=== PATIENT | male | born 1945 | race Caucasian/White ===

== ENCOUNTER 2017-11-14 18:14 | Inpatient (IN) | payer MEDICARE ==
[2017-11-14] MEDS ORDERED: ACETAMINOPHEN 325 MG TABLET PO ONE (18:27)
--- NOTE | 2017-11-14 18:53 | ER Document Report ---
ED Medical Screen (RME) - General Chief Complaint: Incision Problem Stated Complaint: PAIN/REDNESS AT SURGICAL SITE Time Seen by Provider: 11/14/17 18:47 Notes: -year-old male patient with past history colon cancer and in the ostomy. He had a ventral hernia with mesh in the past. The mesh got infected and it was removed about 09/28/2017. He now has an area at the upper part of the scar which is red, bulging and fluctuant which began on 11/11/2017. Also began having a fever on that day. I have greeted and performed a rapid initial assessment of this patient. A comprehensive ED assessment and evaluation of the patient, analysis of test results and completion of the medical decision making process will be conducted by additional ED providers. TRAVEL OUTSIDE OF THE [place] IN LAST 30 DAYS: No - Related Data Allergies/Adverse Reactions: No Known Allergies Allergy (Verified 11/14/17 18:17) Past Medical History - Social History Chew tobacco use (# tins/day): No Frequency of alcohol use: None Drug Abuse: None - Past Medical History Cardiac Medical History: Reports: Hx Heart Murmur - newly Dx'ed, no MVP per echo DR. Hopkins 02/21/12 Denies: Hx Atrial Fibrillation, Hx Congestive Heart Failure, Hx Coronary Artery Disease, Hx Heart Attack, Hx Hypercholesterolemia, Hx Hypertension, Hx Peripheral Vascular Disease Pulmonary Medical History: Denies: Hx Asthma, Hx Tuberculosis Neurological Medical History: Denies: Hx Cerebrovascular Accident, Hx Seizures Renal/ Medical History: Denies: Hx Peritoneal Dialysis Malignancy Medical History: Reports Hx Colorectal Cancer, Denies Hx Leukemia GI Medical History: Denies: Hx Crohn's Disease, Hx Gastroesophageal Reflux Disease, Hx Hepatitis, Hx Hiatal Hernia, Hx Irritable Bowel, Hx Liver Failure, Hx Pancreatitis, Hx Ulcer Musculoskeltal Medical History: Reports Hx Musculoskeletal Deformity, Reports Hx Musculoskeletal Trauma Traumatic Medical History: Reports: Hx Fractures - left femur right wrist Infectious Medical History: Denies: Hx Hepatitis, Hx HIV Past Surgical History: Reports: Hx Abdominal Surgery - hernia repair and mesh removal, Hx Appendectomy, Hx Bowel Surgery - colostomy, Hx Orthopedic Surgery - rt femur left wrist. Denies: Hx Cholecystectomy, Hx Colostomy, Hx Coronary Artery Bypass Graft, Hx Gastric Bypass Surgery, Hx Herniorrhaphy, Hx Open Heart Surgery, Hx Pacemaker, Hx Tonsillectomy - Immunizations Immunizations up to date: Yes Hx Diphtheria, Pertussis, Tetanus Vaccination: Yes Physical Exam - Vital signs Vitals: Temp Pulse Resp BP Pulse Ox 102.1 F H 140 H 20 123/76 94 11/14/17 18:22 11/14/17 18:22 11/14/17 18:22 11/14/17 18:22 11/14/17 18:22 Course - Vital Signs Vital signs: Temp Pulse Resp BP Pulse Ox 102.1 F H 140 H 20 123/76 94 11/14/17 18:22 11/14/17 18:22 11/14/17 18:22 11/14/17 18:22 11/14/17 18:22
[2017-11-14 19:28] LABS: ABSOLUTE BASOPHILS # (AUTO) 0.1 10^3/uL (0.0-0.2); ABSOLUTE LYMPHOCYTES (AUTO) 0.7 10^3/uL (0.5-4.7); ABSOLUTE MONOCYTES (AUTO) 1.2 10^3/uL (0.1-1.4); ABSOLUTE NEUT (AUTO) 8.4 10^3/uL (1.7-8.2); BASOPHILS % (AUTO) 0.5 % (0-2); EOSINOPHILS % (AUTO) 0.3 % (0-6); HEMATOCRIT 36.2 % (37.9-51.0); HEMOGLOBIN 12.1 g/dL (13.5-17.0); LYMPHOCYTES % (AUTO) 7.2 % (13-45); MEAN CORPUSCULAR HEMOGLOBIN 27.9 pg (27.0-33.4); MEAN CORPUSCULAR HGB CONC 33.4 g/dL (32.0-36.0); MEAN CORPUSCULAR VOLUME 83 fl (80-97); MONOCYTES % (AUTO) 11.4 % (3-13); PLATELET COUNT 324 10^3/uL (150-450); RED BLOOD COUNT 4.34 10^6/uL (4.35-5.55); RED CELL DISTRIBUTION WIDTH 15.2 % (11.5-14.0); SEGMENTED NEUTROPHILS % (AUTO) 80.6 % (42-78); TOTAL CELLS COUNTED % (AUTO) 100 %; WHITE BLOOD COUNT 10.4 10^3/uL (4.0-10.5)
[2017-11-14] MEDS ORDERED: NORMAL SALINE 1000 ML 1,000 ML IV ONE (19:44)
[2017-11-14] MEDS ORDERED: AMPICILLIN SOD/SULBACTAM 3 GM VIAL IV ONE (19:45)
[2017-11-14 19:47] LABS: ALANINE AMINOTRANSFERASE 21 U/L (21-72); ALBUMIN 3.9 g/dL (3.5-5.0); ALKALINE PHOSPHATASE 83 U/L (38-126); ANION GAP 13 (5-19); ASPARTATE AMINO TRANSFERASE 20 U/L (17-59); BILIRUBIN,DIRECT 0.3 mg/dL (0.0-0.4); BILIRUBIN,TOTAL 0.4 mg/dL (0.2-1.3); BLOOD UREA NITROGEN 22 mg/dL (7-20); CALCIUM 9.5 mg/dL (8.4-10.2); CARBON DIOXIDE 24 mmol/L (22-30); CHLORIDE 100 mmol/L (98-107); GLUCOSE 109 mg/dL (75-110); POTASSIUM 4.5 mmol/L (3.6-5.0); SODIUM 136.8 mmol/L (137-145); TOTAL PROTEIN 7.2 g/dL (6.3-8.2)
[2017-11-14] MEDS ORDERED: ONDANSETRON HCL INJ/PF 4 MG/2 ML SDV IV ONE (21:35)
--- NOTE | 2017-11-14 21:54 | RADIOLOGY REPORT (SQ) ---
EXAM DESCRIPTION: CT ABD/PELVIS WITH IV ONLY COMPLETED DATE/TIME: 11/14/2017 9:30 pm REASON FOR STUDY: post surgical abscess/abd wall COMPARISON: 2015 CT. TECHNIQUE: CT scan of the abdomen and pelvis performed using helical scanning technique with dynamic intravenous contrast injection. No oral contrast. Images reviewed with lung, soft tissue, and bone windows. Reconstructed coronal and sagittal MPR images reviewed. Delayed images for evaluation of the urinary system also acquired. All images stored on PACS. All CT scanners at this facility use dose modulation, iterative reconstruction, and/or weight based d osing when appropriate to reduce radiation dose to as low as reasonably achievable (ALARA). [facility]: Dose Right [facility]: CareDose [facility]: Dose Right [facility]: Teradose 4D [facility]: StyleSeat CONTRAST TYPE AND DOSE: contrast/concentration: Isovue 370.00 mg/ml; Total Contrast Delivered: 79.0 ml; Total Saline Delivered: 68.1 ml RENAL FUNCTION: Creatinine 1.03 RADIATION DOSE: CT Rad equipment meets quality standard of care and radiation dose reduction techniq ues were employed. CTDIvol: 10.3 - 10.6 mGy. DLP: 1208 mGy-cm.. LIMITATIONS: None. FINDINGS: ABDOMINAL WALL: Along the deep surface of the ventral abdominal wall musculature is a thic k-walled broad flat fluid collection which measures up to 16 cm transverse dimension by 9 cm cranioca udal. Maximal thickness close to 1.7 cm, however there is probable communication with a small 3 cm s ubcutaneous collection just above and to the right of the umbilicus. This appears to extend towards the skin surface, possibly a draining wound. Jiagn images of this are saved to PACS for future review. LOWER CHEST: Mild elevation left hemidiaphragm. Clear lung bases. Small hiatal hernia. LIVER: Normal size. No masses. No dilated ducts. SPLEEN: Normal size. No focal lesions. PANCREAS: No masses. No significant calcifications. No adjacent inflammation or peripancreatic fluid collections. Pancreatic duct not dilated. GALLBLADDER: No identified stones by CT criteria. No inflammatory changes to suggest cholecystitis. ADRENAL GLANDS: No significant masses or asymmetry. RIGHT KIDNEY AND URETER: No solid mass or overt obstruction. LEFT KIDNEY AND URETER: No solid mass. Slight hydronephrosis is suggested. A clear point of obstruc tion is not otherwise demonstrated, however. AORTA AND VESSELS: Atherosclerotic aorta. Borderline aneurysmal dilatation just above bifurcation. Aorta measures 3 cm. Slight dilatation of the right common iliac artery. No venous clot detected. RETROPERITONEUM: No retroperitoneal adenopathy, hemorrhage or masses. BOWEL AND PERITONEAL CAVITY: Status post distal colectomy with left lower quadrant colostomy. Region al herniated small bowel loops along the ostomy defect. No mechanical bowel obstruction. APPENDIX: Not visualized. PELVIS: Chronic presacral thickening status post distal colectomy. Bladder unremarkable. No pelvic mass or overt adenopathy. BONES: No fracture or bone lesion. OTHER: No other significant finding. IMPRESSION: Broad thick-walled fluid collection within the abdomen along the deep surface of the abd ominal wall. Potentially postoperative seroma/ hematoma given recent mesh removal, although infectio n is in the differential. This appears to partially decompressed into the subcutaneous tissues just above the level of the umbilicus, possibly draining to the skin surface. TECHNICAL DOCUMENTATION: JOB ID: [id number] Quality ID # [id number]: Final reports with documentation of one or more dose reduction techniques (e.g., Au tomated exposure control, adjustment of the mA and/or kV according to patient size, use of iterative reconstruction technique) 2010 [employer]- All Rights Reserved
--- NOTE | 2017-11-14 22:28 | ER Document Report ---
ED Wound - General Chief Complaint: Incision Problem Stated Complaint: PAIN/REDNESS AT SURGICAL SITE Time Seen by Provider: 11/14/17 18:47 Mode of Arrival: Wheelchair Information source: Patient, Relative Notes: Patient is a 72-year-old male who presents to the ER today for redness, pain to an incision site where he had mesh removed a month ago at [facility]. Patient states that he had a hernia with mesh placed 3 years ago and a "kept getting infected" the last month he had the mesh removed. Patient states he has been doing fine until yesterday whenever he had a fever of 102F and started vomiting. He states at that time he did notice that there was some redness and pain to the top of the incision on his abdomen. He denies any drainage. He does also have a permanent colostomy, denies any purulence leaking from that. TRAVEL OUTSIDE OF THE [place] IN LAST 30 DAYS: No - Related Data Allergies/Adverse Reactions: No Known Allergies Allergy (Verified 11/14/17 18:17) Past Medical History - General Information source: Patient, Relative - Social History Smoking Status: Former Smoker Chew tobacco use (# tins/day): No Frequency of alcohol use: None Drug Abuse: None Family History: Reviewed & Not Pertinent Patient has suicidal ideation: No Patient has homicidal ideation: No - Past Medical History Cardiac Medical History: Reports: Hx Heart Murmur - newly Dx'ed, no MVP per echo DR. Hopkins 02/21/12 Denies: Hx Atrial Fibrillation, Hx Congestive Heart Failure, Hx Coronary Artery Disease, Hx Heart Attack, Hx Hypercholesterolemia, Hx Hypertension, Hx Peripheral Vascular Disease Pulmonary Medical History: Denies: Hx Asthma, Hx Tuberculosis Neurological Medical History: Denies: Hx Cerebrovascular Accident, Hx Seizures Renal/ Medical History: Denies: Hx Peritoneal Dialysis Malignancy Medical History: Reports Hx Colorectal Cancer, Denies Hx Leukemia GI Medical History: Denies: Hx Crohn's Disease, Hx Gastroesophageal Reflux Disease, Hx Hepatitis, Hx Hiatal Hernia, Hx Irritable Bowel, Hx Liver Failure, Hx Pancreatitis, Hx Ulcer Musculoskeltal Medical History: Reports Hx Musculoskeletal Deformity, Reports Hx Musculoskeletal Trauma Traumatic Medical History: Reports: Hx Fractures - left femur right wrist Infectious Medical History: Denies: Hx Hepatitis, Hx HIV Past Surgical History: Reports: Hx Abdominal Surgery - hernia repair and mesh removal, Hx Appendectomy, Hx Bowel Surgery - colostomy, Hx Orthopedic Surgery - rt femur left wrist. Denies: Hx Cholecystectomy, Hx Colostomy, Hx Coronary Artery Bypass Graft, Hx Gastric Bypass Surgery, Hx Herniorrhaphy, Hx Open Heart Surgery, Hx Pacemaker, Hx Tonsillectomy - Immunizations Immunizations up to date: Yes Hx Diphtheria, Pertussis, Tetanus Vaccination: Yes Review of Systems - Review of Systems Constitutional: See HPI EENT: No symptoms reported Cardiovascular: No symptoms reported Respiratory: No symptoms reported Gastrointestinal: See HPI Genitourinary: No symptoms reported Male Genitourinary: No symptoms reported Musculoskeletal: No symptoms reported Skin: See HPI Hematologic/Lymphatic: No symptoms reported Neurological/Psychological: No symptoms reported Physical Exam - Vital signs Vitals: Temp Pulse Resp BP Pulse Ox 102.1 F H 140 H 20 123/76 94 11/14/17 18:22 11/14/17 18:22 11/14/17 18:22 11/14/17 18:22 11/14/17 18:22 - Notes Notes: PHYSICAL EXAMINATION: GENERAL: Well-appearing and in no acute distress. HEAD: Atraumatic, normocephalic. EYES: Pupils equal round and reactive to light, extraocular movements intact, sclera anicteric, conjunctiva are normal. NECK: Normal range of motion, supple without lymphadenopathy LUNGS: CTAB and equal. No wheezes rales or rhonchi. HEART: Regular rate and rhythm without murmurs ABDOMEN: Soft, large vertical healed incision site to the mid abdomen, superior portion with erythema surrounding and small, 1-1/2 cm fluctuant area, tender to palpation. No guarding, no rebound EXTREMITIES: Normal range of motion, no pitting edema. No cyanosis. NEUROLOGICAL: Cranial nerves grossly intact. Normal sensory/motor exams. PSYCH: Normal mood, normal affect. SKIN: Warm, Dry, normal turgor, no rashes or lesions noted Course - Re-evaluation Re-evalutation: 11/14/17 22:43 Lab work is unremarkable including a normal white blood cell count. Patient's abscess did burst on its own here in the emergency department and a large amount of purulence drained. CAT scan reports a deep abdominal wall abscess, but not into the abdominal cavity. Dr. Garcia, surgeon on-call did evaluate the patient at bedside with me, and wants to take him to the OR for a surgical incision and drainage. Patient's fever did reduce here with Tylenol and patient did start vomiting here but Zofran also relieve those symptoms. I did start Unasyn early on before the CAT scan which the surgeon was pleased with. 11/14/17 22:45 - Vital Signs Vital signs: Temp Pulse Resp BP Pulse Ox 102.1 F H 140 H 20 123/76 94 11/14/17 18:22 11/14/17 18:22 11/14/17 18:22 11/14/17 18:22 11/14/17 18:22 - Laboratory Result Diagrams: 11/14/17 18:52 11/14/17 18:52 Laboratory results interpreted by me: 11/14/17 11/14/17 18:52 18:52 RBC 4.34 L Hgb 12.1 L Hct 36.2 L RDW 15.2 H Seg Neutrophils % 80.6 H Lymphocytes % 7.2 L Absolute Neutrophils 8.4 H Sodium 136.8 L BUN 22 H Discharge - Discharge Clinical Impression: Abdominal wall abscess Condition: Stable Disposition: ADMITTED INPATIENT Admitting Provider: Surgicalist Unit Admitted: OR
--- NOTE | 2017-11-14 23:29 | PDOC H&P ---
History of Present Illness Admission Date/PCP: 11/14/17 22:33 KAYLA ERWIN MD Patient complains of: abdominal wall pains History of Present Illness: BLOSSOM MARES is a 72 year old male who had an abdominal wall mesh removed at [place] in . C/O abdominal wall pains with redness at the incision site just above the umbilicus. This started draining in the ER. C/S were obtained of the drainage.C/O being cold. No fever. Past Medical History Cardiac Medical History: Reports: Heart Murmur - newly Dx'ed, no MVP per echo DR. Hopkins 02/21/12 Denies: Atrial Fibrillation, Congestive Heart Failure, Coronary Artery Disease, Myocardial Infarction, Hyperlipidema, Hypertension, Peripheral Vascular Disease Pulmonary Medical History: Denies: Asthma, Tuberculosis Neurological Medical History: Denies: Seizures Malignancy Medical History: Reports: Colorectal Cancer Denies: Leukemia GI Medical History: Denies: Crohn's Disease, Gastroesophageal Reflux Disease, Hepatitis, Hiatal Hernia Hematology: Reports: Anemia - required transfusion 12 years ago Denies: Hemophilia, Sickle Cell Disease Infectious Medical History: Denies: HIV Past Surgical History Past Surgical History: Reports: Appendectomy, Orthopedic Surgery - rt femur left wrist, Other - Permanent colostomy for colon Ca about 15 years ago Denies: Cholecystectomy, Colostomy, Coronary Artery Bypass Graft, Gastric Bypass Surgery, Herniorrhaphy, Pacemaker, Tonsillectomy Social History Smoking Status: Former Smoker Frequency of Alcohol Use: None Hx Recreational Drug Use: No Hx Prescription Drug Abuse: No Family History Family History: Reviewed & Not Pertinent Parental Family History Reviewed: Yes - father of lung ca/emphysema Children Family History Reviewed: No Sibling(s) Family History Reviewed.: No Medication/Allergy Home Medications: Tramadol HCl [Ultram 50 mg Tablet] 50 mg PO ASDIR PRN #20 tablet 04/27/14 Hydrocodone/Acetaminophen [Dows 5-325 mg Tablet] 1 tab PO Q6HP #14 tablet 08/04 Ondansetron [Zofran Odt 4 mg Tablet] 1 - 2 tab PO Q4H PRN #15 tab.rapdis Allergies/Adverse Reactions: No Known Allergies Allergy (Verified 11/14/17 18:17) Review of Systems Constitutional: PRESENT: chills Eyes: PRESENT: other - no vis/hearing changes Nose, Mouth, and Throat: PRESENT: other - no sore throat Cardiovascular: PRESENT: other - no chest pains Respiratory: PRESENT: other - no cough Gastrointestinal: PRESENT: abdominal pain, nausea Genitourinary: PRESENT: other - no dysuria Musculoskeletal: PRESENT: other - no joint swelling Integumentary: PRESENT: other - no rash Neurological: PRESENT: other - no seizures Endocrine: PRESENT: cold intolerance Hematologic/Lymphatic: PRESENT: other - no easy bruisability Physical Exam Vital Signs: Temp Pulse Resp BP Pulse Ox 102.1 F H 140 H 20 123/76 94 11/14/17 18:22 11/14/17 18:22 11/14/17 18:22 11/14/17 18:22 11/14/17 18:22 General appearance: PRESENT: mild distress Head exam: PRESENT: atraumatic Eye exam: PRESENT: conjunctiva pink Mouth exam: PRESENT: moist, tongue midline Neck exam: PRESENT: full ROM Respiratory exam: PRESENT: clear to auscultation [place] Cardiovascular exam: PRESENT: RRR Pulses: PRESENT: normal radial pulses Vascular exam: PRESENT: normal capillary refill GI/Abdominal exam: PRESENT: soft, tenderness - at the epigastric incision site with redness. Has some purulent draining at the midpart of rcchymosis., other - colostomy on the LLQ functioning well.Claims has another mesh around colostomy site Rectal exam: PRESENT: deferred Extremities exam: PRESENT: full ROM Musculoskeletal exam: PRESENT: ambulatory Neurological exam: PRESENT: alert, oriented to person, oriented to place, oriented to time, oriented to situation Psychiatric exam: PRESENT: anxious Skin exam: PRESENT: normal color, warm Results Impressions: Abdomen/Pelvis CT 11/14/17 19:44 IMPRESSION: Broad thick-walled fluid collection within the abdomen along the deep surface of the abdominal wall. Potentially postoperative seroma/ hematoma given recent mesh removal, although infection is in the differential. This appears to partially decompressed into the subcutaneous tissues just above the level of the umbilicus, possibly draining to the skin surface. Assessment & Plan - Diagnosis (1) Abdominal wall abscess Is this a current diagnosis for this admission?: Yes (2) History of colon cancer Is this a current diagnosis for this admission?: Yes - Time Time Spent: 30 to 50 Minutes - Inpatient Certification Medical Necessity: Need For IV Fluids, Need for Pain Control, Need for IV Antibiotics, Need for Surgery - Plan Summary Plan Summary: Start IV antibiotics Unasyn NPO Hydrate Possible I&D tomorrow.
[2017-11-15] MEDS ORDERED: DEXTROSE 50%-WATER 25 GM/50 ML DISP.SYRIN IV PRN ×2 (01:27)
[2017-11-15] MEDS ORDERED: GLUCAGON,HUMAN RECOMB 1 MG INJ SUBCUT PRN (01:27)
[2017-11-15] MEDS ORDERED: DEXTROSE 40% GEL 15 GM TUBE PO PRN ×2 (01:27)
[2017-11-15] MEDS ORDERED: AMPICILLIN SOD/SULBACTAM 3 GM VIAL IV PRN (02:44)
[2017-11-15] MEDS ORDERED: ONDANSETRON HCL INJ/PF 4 MG/2 ML SDV IV PRN (02:45)
[2017-11-15] MEDS ORDERED: NORMAL SALINE 1000 ML 1,000 ML IV PRN (02:45)
[2017-11-15] MEDS ORDERED: AMPICILLIN SOD/SULBACTAM 3 GM VIAL ONE (02:52)
[2017-11-15] MEDS: AMPICILLIN SODIUM/SULBACTAM NA 3 GM in NORMAL SALINE 100 ML IV SCH ×4 (03:17→21:36)
--- NOTE | 2017-11-15 09:09 | PDOC PROGRESS REPORT ---
Subjective Progress Note for:: 11/15/17 Subjective:: abdominal drainage Reason For Visit: ABSCESS OF ABDOMINAL WALL Physical Exam Vital Signs: Temp Pulse Resp BP Pulse Ox 98.3 F 70 17 127/57 H 96 11/15/17 08:14 11/15/17 08:14 11/15/17 08:14 11/15/17 08:14 11/15/17 08:14 Intake & Output 11/14/17 11/15/17 11/16/17 06:59 06:59 06:59 Weight 78.2 kg General appearance: PRESENT: no acute distress, cooperative Respiratory exam: PRESENT: clear to auscultation [place] Cardiovascular exam: PRESENT: RRR GI/Abdominal exam: PRESENT: other - Supraumbilical midline punctate opening with seropurulent drainage with underlying fluctuance and surrounding erythema. Results Impressions: Abdomen/Pelvis CT 11/14/17 19:44 IMPRESSION: Broad thick-walled fluid collection within the abdomen along the deep surface of the abdominal wall. Potentially postoperative seroma/ hematoma given recent mesh removal, although infection is in the differential. This appears to partially decompressed into the subcutaneous tissues just above the level of the umbilicus, possibly draining to the skin surface. Assessment & Plan - Diagnosis (1) Abdominal wall abscess Is this a current diagnosis for this admission?: Yes Plan: In patient with prior history of ventral hernia status post mesh repair complicated by mesh infection. Most recently underwent mesh removal. Now with surgical site infection. We will plan to do debridement in the OR today. I have discussed with the patient risks and benefits of the procedure including risk of prolonged wound healing, recurrent infection, bleeding. Patient understands and agrees to proceed.
[2017-11-15] MEDS ORDERED: FENTANYL CITRATE INJ/PF 100 MCG/2 ML AMPUL ONE ×2 (16:28)
[2017-11-15] MEDS ORDERED: MIDAZOLAM 2 MG/2 ML INJ ONE (16:29)
[2017-11-15] MEDS ORDERED: PROPOFOL INJ 200 MG/20 ML VIAL IV ONE (16:29)
[2017-11-15] MEDS ORDERED: MORPHINE SULFATE 10 MG/ML INJ ONE (16:29)
--- NOTE | 2017-11-15 17:06 | EKG REPORT ---
SEVERITY:- OTHERWISE NORMAL ECG - SINUS RHYTHM VENTRICULAR PREMATURE COMPLEX LOW VOLTAGE IN FRONTAL LEADS : Confirmed by: Quinn Mcmanus 15-Nov-2017 17:05:26
[2017-11-15] MEDS ORDERED: BUPIVACAINE HCL 0.25 % INJ/PF (2.5 MG/1 ML) 30 ML VIAL ONE (17:34)
[2017-11-15] MEDS ORDERED: DIPHENHYDRAMINE HCL 50 MG/ML VIAL IV PRN (17:48)
[2017-11-15] MEDS ORDERED: OXYCODONE-ACETAMINOPHEN 5-325 MG TABLET PO PRN ×2 (17:48)
[2017-11-15] MEDS ORDERED: MORPHINE SULFATE 10 MG/ML INJ IV PRN (17:48)
[2017-11-15] MEDS ORDERED: MEPERIDINE HCL/PF INJ 25 MG/1 ML DISP.SYRIN IV PRN (17:48)
[2017-11-15] MEDS ORDERED: PROMETHAZINE HCL INJ 25 MG/1 ML VIAL IV PRN ×2 (17:48)
[2017-11-15] MEDS ORDERED: FENTANYL CITRATE INJ/PF 100 MCG/2 ML AMPUL IV PRN ×3 (17:48)
[2017-11-15] MEDS: FENTANYL CITRATE INJ/PF 100 MCG/2 ML AMPUL ONE ×2 (18:35→18:40)
--- NOTE | 2017-11-15 18:50 | Operative Report ---
Operative Report DATE OF SURGERY: 11/15/17 PREOPERATIVE DIAGNOSIS: Abdominal wall abscess POSTOPERATIVE DIAGNOSIS: Abdominal wall abscess OPERATION: Excisional debridement of the abdominal wall abscess SURGEON: DELFIN HELLER ANESTHESIA: GA TISSUE REMOVED OR ALTERED: Pus submitted for Gram stain and culture COMPLICATIONS: None ESTIMATED BLOOD LOSS: 20 cc INTRAOPERATIVE FINDINGS: Several centimeters above the umbilicus a small skin opening with underlying tract going between 2 abdominal layers into an approximately 10 x 15 cm abscess cavity between the anterior and posterior layer. Cavity filled with pus. PROCEDURE: Informed consent was obtained. Patient was brought to the operating room placed in the operating table in supine position. After satisfactory induction of general anesthesia patient's abdomen was prepped and draped in usual sterile fashion. At the midline several centimeters above the umbilicus there was a small skin opening this opening was widened by excising a sliver of skin exposing 1/2 cm track extending deep through a very dense layer of connective tissue. About a 2 cm x 1 cm piece of this dense connective tissue was excised to allow digital probing of the abscess cavity. The abscess cavity measured about 10x 15 cm in size. The floor of the abscess cavity felt firm with the feel of fascia. And the roof of the abscess cavity also felt very firm with the feel of fascia. My best guess was that the patient had developed a seroma between the anterior and the posterior fascia which subsequently became infected and eroded anteriorly out thru the anterior fascia and the skin. To allow drainage I excised a approximately 5 x 3 cm section of skin. The defect in the anterior fascia was widened circumferentially to about 2 x 3 cm in size. The abscess cavity was copiously irrigated with peroxide and saline and irrigate certain fluid was completely aspirated out. A wound VAC was then placed with the tip of the sponge positioned through the anterior fascial defect. Patient tolerated the procedure well with no apparent complications and was taken to the recovery area in stable condition.
[2017-11-15] MEDS: MORPHINE SULFATE 10 MG/ML INJ IV PRN ×2 (19:29→23:34)
[2017-11-16] MEDS: AMPICILLIN SODIUM/SULBACTAM NA 3 GM in NORMAL SALINE 100 ML IV SCH ×4 (02:04→20:03)
[2017-11-16] MEDS: MORPHINE SULFATE 10 MG/ML INJ IV PRN ×2 (06:01→11:59)
--- NOTE | 2017-11-16 15:33 | PDOC PROGRESS REPORT ---
Subjective Progress Note for:: 11/16/17 Subjective:: no c/o, tolerating po well, bowel function present Reason For Visit: ABSCESS OF ABDOMINAL WALL Physical Exam Vital Signs: Temp Pulse Resp BP Pulse Ox 99.0 F 70 18 155/63 H 94 11/16/17 11:44 11/16/17 11:44 11/16/17 11:44 11/16/17 11:44 11/16/17 11:44 Intake & Output 11/15/17 11/16/17 11/17/17 06:59 06:59 06:59 Intake Total 1144 Output Total 560 Balance 584 Weight 78.2 kg GI/Abdominal exam: PRESENT: soft, other - clean, covered with woundvac, no erythema or edema Results Impressions: Abdomen/Pelvis CT 11/14/17 19:44 IMPRESSION: Broad thick-walled fluid collection within the abdomen along the deep surface of the abdominal wall. Potentially postoperative seroma/ hematoma given recent mesh removal, although infection is in the differential. This appears to partially decompressed into the subcutaneous tissues just above the level of the umbilicus, possibly draining to the skin surface. Assessment & Plan - Diagnosis (1) Abdominal wall abscess Is this a current diagnosis for this admission?: Yes - Plan Summary Plan Summary: Continue IV abx Waiting for final cx results with sensitivity Patient can be d/c to home on oral antibiotics once cx final results are available Discharge planning consult for outpatient WoundVac management
[2017-11-16] MEDS ORDERED: IBUPROFEN 400 MG TABLET PO PRN (21:02)
[2017-11-16] MEDS ORDERED: ACETAMINOPHEN 325 MG TABLET PO PRN (21:02)
[2017-11-17] MEDS: AMPICILLIN SODIUM/SULBACTAM NA 3 GM in NORMAL SALINE 100 ML IV SCH ×3 (02:56→15:03)
--- NOTE | 2017-11-17 12:13 | PDOC PROGRESS REPORT ---
Subjective Progress Note for:: 11/17/17 Subjective:: no c/o, tolerating po well, bowel function present Reason For Visit: ABSCESS OF ABDOMINAL WALL Physical Exam Vital Signs: Temp Pulse Resp BP Pulse Ox 97.4 F 72 16 160/97 H 98 11/17/17 08:38 11/17/17 08:38 11/17/17 08:38 11/17/17 08:38 11/17/17 08:38 Intake & Output 11/16/17 11/17/17 11/18/17 06:59 06:59 06:59 Intake Total 1144 1451 Output Total 560 660 Balance 584 791 Weight 86.1 kg Respiratory exam: PRESENT: clear to auscultation [place] Cardiovascular exam: PRESENT: RRR GI/Abdominal exam: PRESENT: soft, other - wound covered with woundvac, no erythema or edema Results Impressions: Abdomen/Pelvis CT 11/14/17 19:44 IMPRESSION: Broad thick-walled fluid collection within the abdomen along the deep surface of the abdominal wall. Potentially postoperative seroma/ hematoma given recent mesh removal, although infection is in the differential. This appears to partially decompressed into the subcutaneous tissues just above the level of the umbilicus, possibly draining to the skin surface. Assessment & Plan - Diagnosis (1) Abdominal wall abscess Is this a current diagnosis for this admission?: Yes - Plan Summary Plan Summary: s/p I&D abdominal wall abscess doing well Cx significant for propionobacterium P/ Home today f/u with [place] Surgeon in 1-2 weeks f/u with Dr. Madden if patient cannot see Surgeon in [place] Doxycycline 100 mg po qd x 14 days WoundVac to be replace as per routine by Home care Nurse resume home meds and diet activities as tolerated, be mindful of WoundVac
[2017-11-17 16:24] VITALS: BP 127/57
--- NOTE | 2017-11-17 20:24 | DISCHARGE SUMMARY E ---
Discharge Summary NAME: BLOSSOM MARES : 1945 AGE: 72Y ADMITTED: 11/14/2017 DISCHARGED: 11/17/2017 FINAL DIAGNOSIS: Abdominal wall abscess. PROCEDURE: On 11/15, the patient underwent incision and drainage of abdominal wall abscess with wound VAC placement. The procedure was uneventful. The patient was transferred to the floor. His postop course was uneventful as well. The patient was kept on IV antibiotic Zosyn and the wound VAC was properly maintained during the hospitalization. His vital signs remained stable. On the day of discharge the patient had no complaints and was tolerating p.o. well. His vital signs are stable. His blood work was within normal limits. Culture from the abdominal wound revealed Propionobacterium sensitive to tetracyclines. DISCHARGE INSTRUCTIONS: The patient was discharged home and instructed to take his home medications plus doxycycline 100 mg p.o. daily for 14 days. He was given a follow up appointment with his surgeon in [place], where the patient had the original surgery for his ventral hernia, and also he was given an alternative follow up appointment with Dr. Madden within 1-2 weeks if the patient could not see his surgeon in [place]. The patient was given instruction to resume regular diet, activities as tolerated, sponge bath only, and the prescribed antibiotics. A home care nurse service was arranged for home and maintenance of the wound VAC. DICTATING PHYSICIAN: SANDEE SMITH M.D. [id number] PHY#: [id number] ID: [id number] JOB#: [id number] ACCT: [id number] cc:Radha CARRERO M.D. > MTDD
== END 2017-11-17 17:10 | disposition home health service (06) | DRG 857 ==
LOC: ER 18:14 → INTOOBSV 22:33 → EH 22:33 → 4N 11-15 01:17 → OBSVTOIN 11-17 15:12
PROVIDERS: ADMIT Surgery; ATTEND Surgery
PROC: 0J980ZZ Drainage of Abdomen Subcutaneous Tissue and Fascia, Open Approach (ICD-10-PCS; principal; 2017-11-15 17:30)
DX: T81.4XXA Infection following a procedure, initial encounter (principal); L02.211 Cutaneous abscess of abdominal wall; Z90.49 Acquired absence of other specified parts of digestive tract; Z93.3 Colostomy status; Z85.038 Personal history of other malignant neoplasm of large intestine; Z80.1 Family history of malignant neoplasm of trachea, bronchus and lung; Z87.891 Personal history of nicotine dependence
CPT/HCPCS: 36415; 700; 74177; 80053; 85025; 87040; 87070; 87075; 87077; 87186; 87205; 93005; 93010; 96365; 96375; 99284; G0378; J0295; J2250; J2270; J2405; J2704; J3010; J3490; J7030

== ENCOUNTER 2018-03-27 15:03 | Emergency (ER) | payer MEDICARE ==
[2018-03-27] MEDS ORDERED: DIPHENHYDRAMINE HCL 50 MG/ML VIAL IV ONE (15:52)
[2018-03-27] MEDS ORDERED: FAMOTIDINE INJ/PF 20 MG/2 ML SDV IV ONE ×2 (15:52→17:03)
--- NOTE | 2018-03-27 16:01 | ER Document Report ---
ED Allergic Reaction - General Mode of Arrival: Ambulatory Information source: Patient TRAVEL OUTSIDE OF THE [place] IN LAST 30 DAYS: No - General Chief Complaint: Allergic Reaction Stated Complaint: ALLERGIC REACTION Time Seen by Provider: 03/27/18 15:37 Notes: Patient is a 73 year old male with colorectal cancer presents to the emergency department complaining of a possible allergic reaction. Patient states he was recently diagnosed with bronchitis today and prescribed Levaquin and Prednisone without an inhaler. Patient states approximately 15 minutes after taking these medications he began to itch excessively and develop a red rash. Patient states he has never taking either medication before but has taken Cipro. (KIRA,TAMAYA) - Related Data Allergies/Adverse Reactions: No Known Allergies Allergy (Verified 03/27/18 15:05) Past Medical History - General Information source: Patient - Social History Smoking Status: Former Smoker Cigarette use (# per day): No Chew tobacco use (# tins/day): No Smoking Education Provided: No Family History: Reviewed & Not Pertinent - Past Medical History Cardiac Medical History: Reports: Hx Heart Murmur - newly Dx'ed, no MVP per echo DR. Hopkins 02/21/12 Malignancy Medical History: Reports Hx Colorectal Cancer Musculoskeltal Medical History: Reports Hx Musculoskeletal Deformity, Reports Hx Musculoskeletal Trauma Traumatic Medical History: Reports: Hx Fractures - left femur right wrist Past Surgical History: Reports: Hx Abdominal Surgery - hernia repair and mesh removal, Hx Appendectomy, Hx Bowel Surgery - colostomy, Hx Orthopedic Surgery - rt femur left wrist, Other - Permanent colostomy for colon Ca about 15 years ago - Immunizations Immunizations up to date: Yes Hx Diphtheria, Pertussis, Tetanus Vaccination: Yes Review of Systems - Review of Systems Constitutional: See HPI EENT: No symptoms reported Cardiovascular: No symptoms reported Respiratory: No symptoms reported Gastrointestinal: No symptoms reported Genitourinary: No symptoms reported Male Genitourinary: No symptoms reported Musculoskeletal: See HPI Skin: No symptoms reported Hematologic/Lymphatic: No symptoms reported Neurological/Psychological: No symptoms reported -: Yes All other systems reviewed and negative Physical Exam - General General appearance: Appears well, Alert In distress: None - HEENT Head: Normocephalic, Atraumatic Eyes: Normal Conjunctiva: Normal Extraocular movements intact: Yes Pupils: PERRL Neck: Normal - Respiratory Respiratory status: No respiratory distress Chest status: Nontender - Cardiovascular Rhythm: Regular Heart sounds: Normal auscultation Murmur: No Friction rub: No Gallop: None auscultated - Abdominal Inspection: Normal, Other - colostmy bag, binder for ventral hernia Distension: No distension Bowel sounds: Normal Tenderness: Nontender Organomegaly: No organomegaly - Back Back: Normal - Extremities General upper extremity: Normal ROM General lower extremity: Normal ROM. No: Edema - Neurological Neuro grossly intact: Yes Cognition: Normal Orientation: AAOx4 Arturo Coma Scale Eye Opening: Spontaneous [place] Coma Scale Verbal: Oriented [place] Coma Scale Motor: Obeys Commands [place] Coma Scale Total: 15 Speech: Normal - Psychological Associated symptoms: Normal affect, Normal mood - Skin Skin Temperature: Warm Skin Moisture: Dry Skin Color: Erythema - diffuse blanching erythema across the anterior chest blanching Skin irregularity: Rash Location of irregularity: Chest - Vital signs Vitals: Temp Pulse Resp BP Pulse Ox 97.5 F 100 24 H 90/48 L 96 03/27/18 15:19 03/27/18 15:19 03/27/18 15:19 03/27/18 15:19 03/27/18 15:19 Course - Re-evaluation Re-evalutation: 03/27/18 17:04 At this time the itching in the chest and abdomen is gone and the erythema that was quite pronounced earlier is completely gone. He does have some itching down in his calves of his legs. Give him an additional dose of the Pepcid only as he was sound asleep possibly from the Benadryl. 03/27/18 18:16 Patient reports itching is completely gone now and he is anxious to go home. He does have Benadryl at home and has Zantac at home. He will stop the Levaquin and prednisone at this time. He will continue taking his Mucinex tablets. He will be prescribed doxycycline for his bronchitis, as he has taken doxycycline in the past without problems. (TANJA CARVALHO) - Vital Signs Vital signs: Temp Pulse Resp BP Pulse Ox 97.5 F 100 23 H 121/60 96 03/27/18 15:19 03/27/18 15:19 03/27/18 17:01 03/27/18 17:01 03/27/18 17:01 Discharge - Discharge Clinical Impression: Urticaria Allergic reaction caused by a drug Qualifiers: Encounter type: initial encounter Qualified Code(s): T78.40XA - Allergy, unspecified, initial encounter Condition: Stable Disposition: HOME, SELF-CARE Additional Instructions: Acute Allergic Reaction Your symptoms are due to an allergic reaction. Allergy can cause hives, swelling of the hands, feet, and face, hoarseness, and difficulty swallowing or breathing. It may be due to exposure to medication, animal dander, foods, infection, or insect bites. Medication is a common cause, even when prior use of this same medication caused no problems. Acute treatment may include adrenalin and antihistamines. Usually, the specific allergic agent can't be identified unless repeated episodes occur. Home treatment includes the following: (1) Stop any suspicious medications. This will be discussed with you. (2) Oral antihistamines for the next four to five days. Example, diphenhydramine (Benadryl) every four hours. (3) You may also use cimetidine (Tagamet), ranitidine (Zantac), or famotidine (Pepcid) every four hours if diphenhydramine is not controlling itching and hives. (4) Avoid aspirin until the hives completely disappear. (5) Avoid hot bahs or showers until the hives are completely gone. Call the doctor if faintness, difficulty swallowing, tightness in the chest, or wheezing occurs. Stop taking the prednisone and the Levaquin. Start the Doxycycline tomorrow. Take Zantac 150 mg to 300 mg every 8 hours for the next 24 hours. Take Benadryl 25 mg at bedtime tonight. Follow-up with your doctor tomorrow if not better. RETURN TO THE EMERGENCY ROOM IF ANY NEW OR WORSENING SYMPTOMS. Prescriptions: Doxycycline Hyclate 100 mg PO BID #14 tablet Referrals: KAYLA ERWIN MD [Primary Care Provider] - Follow up as needed Scribe Attestation: 05/30/18 17:01 I personally performed the services described in the documentation, reviewed and edited the documentation which was dictated to the scribe in my presence, and it accurately records my words and actions. (TANJA CARVALHO) Scribe Documentation - Scribe Written by Tovae:: Conner Foster, 03/27/2018 16:11 acting as scribe for :: Rosy
[2018-03-27 18:31] VITALS: BP 162/78
== END 2018-03-27 18:31 | disposition home or self-care (01) ==
LOC: ER 15:03
DX: L50.9 Urticaria, unspecified (principal); T37.8X5A Adverse effect of other specified systemic anti-infectives and antiparasitics, initial encounter; T38.0X5A Adverse effect of glucocorticoids and synthetic analogues, initial encounter; X58.XXXA Exposure to other specified factors, initial encounter; Z87.891 Personal history of nicotine dependence
CPT/HCPCS: 96376; 99283; 96374; 96375; J1200; S0028